=== PATIENT | male | born 1960 | race Caucasian/White ===

== ENCOUNTER 2022-10-15 18:43 | Emergency (ER) | payer SELFPAY ==
[~2022-10-15] VITALS: Ht 172.7 cm; Wt 65.0 kg
[2022-10-15 19:07] VITALS: BP 132/66; PULSE 56; RESP 14; TEMP 98.8; O2SAT 95
== END 2022-10-15 21:19 | disposition left against medical advice (07) ==
LOC: ER 18:43
DX: M79.674 Pain in right toe(s) (principal); Z53.21 Procedure and treatment not carried out due to patient leaving prior to being seen by health care provider
CPT/HCPCS: 99281